=== PATIENT | female | born 1940 | race Caucasian/White ===

== ENCOUNTER 2017-01-10 16:34 | Outpatient (CLI) | payer OTHER, MEDICARE ==
--- NOTE | 2017-01-10 17:59 | DIAGNOSTIC IMAGING REPORT ---
PROCEDURE: XR FEMUR - LEFT INDICATION: FALL 12-29-16 LEFT LEG PAIN TECHNIQUE: AP and lateral views. COMPARISON: None. FINDINGS: Osseous structures are normal. IMPRESSION: 1. Normal left femur.
--- NOTE | 2017-01-10 18:07 | DIAGNOSTIC IMAGING REPORT ---
PROCEDURE: XR HIP 2VW W W/O AP PELVIS-LT INDICATION: FALL TECHNIQUE: AP view of the pelvis and hips with lateral view of the left hip. COMPARISON: None. FINDINGS: Left HIP: There is no fracture dislocation. There is osteoarthritis with the narrowing of the joint space. PELVIS: Previous femoral neck fractures been fixed with an intramedullary dora and a screw. There is osteoarthritis with narrowing of the joint space and marked irregularity of the femoral head. IMPRESSION: 1. Bilateral hip osteoarthritis. 2. Status post repair of right femoral neck fracture. 3. Left hip without fracture or dislocation.
== END 2017-01-10 23:00 ==
LOC: XR SRH 16:34
DX: M16.0 Bilateral primary osteoarthritis of hip (principal); M25.552 Pain in left hip